=== PATIENT | female | born 1980 | race Two or more races ===

== ENCOUNTER 2019-03-26 08:51 | Day surgery (SDC) | payer BC ==
[2019-03-25 08:58] VITALS: BMI 26.9
[2019-03-26] MEDS ORDERED: MIDAZOLAM HCL 2 MG/2 ML SINGLE DOSE VIAL ONE ×2 (09:38)
[2019-03-26] MEDS ORDERED: DEXAMETHASONE SOD PHOSPHATE 4 MG/1 ML VIAL ONE ×2 (09:38→11:35)
[2019-03-26] MEDS ORDERED: PROPOFOL 20 ML ONE ×2 (09:38→11:36)
[2019-03-26] MEDS ORDERED: SUCCINYLCHOLINE CHLORIDE 200 MG/10 ML SYRINGE ONE (10:46)
[2019-03-26] MEDS ORDERED: EPHEDRINE SULFATE/0.9% NACL/PF 50 MG/10 ML SYRINGE NR ONE (10:46)
[2019-03-26] MEDS ORDERED: CEFOXITIN SODIUM 2 GM IVPB ONE (10:57)
[2019-03-26] MEDS ORDERED: cefOXitin SODIUM 1 GM VIAL (RESTRICTED TO ID) IVPB ONE (11:30)
[2019-03-26] MEDS ORDERED: KETOROLAC TROMETHAMINE 30 MG/1 ML VIAL ONE (11:35)
[2019-03-26] MEDS ORDERED: ACETAMINOPHEN 500 MG TABLET (FP) PO PRN (12:10)
[2019-03-26] MEDS ORDERED: IBUPROFEN 600 MG TABLET (FP) PO PRN (12:10)
--- NOTE | 2019-03-26 12:14 | OP ---
Operative Note - Note: Operative Date: 03/26/19 Pre-Operative Diagnosis: Aborting myoma. Menorrhagia; iron def. anemia. Operation: Hysteroscopy. D and C. Resection of aborting myoma. Post-Operative Diagnosis: Same as Pre-op Surgeon: Charles Louis Anesthesia: General Estimated Blood Loss (mls): 25 Operative Report Dictated: Yes
[2019-03-26] MEDS ORDERED: oxyCODONE HCL 5 MG TABLET PO PRN (12:22)
[2019-03-26] MEDS ORDERED: ONDANSETRON 4 MG/2 ML VIAL IVPUSH PRN (12:22)
[2019-03-26] MEDS ORDERED: LACTATED RINGERS SOLUTION 1,000 ML IV SCH (12:30)
[2019-03-26 13:48] VITALS: TEMP 98
[2019-03-26 14:40] VITALS: BP 121/75; PULSE 85
--- NOTE | 2019-03-26 18:21 | OP ---
DATE OF OPERATION: 03/26/2019 PREOPERATIVE DIAGNOSES: 1. Fibroid uterus with aborting leiomyoma. 2. Menorrhagia, dysfunctional uterine bleeding with resulting iron deficiency anemia. POSTOPERATIVE DIAGNOSES: 1. Fibroid uterus with aborting leiomyoma. 2. Menorrhagia, dysfunctional uterine bleeding with resulting iron deficiency anemia. PROCEDURE: 1. Hysteroscopy. 2. Dilatation and curettage. 3. Resection of aborting myoma. SURGEON: Haley Louis MD ANESTHESIA: General laryngeal mask anesthesia. ANESTHESIOLOGIST: Viviane Stokes MD PROCEDURE AND FINDINGS: Under light general anesthesia, in dorsal lithotomy position, the patient was prepped and draped in the normal fashion and examined. Uterus was found to be enlarged with 4-cm fibroid protruding through dilated cervical os. Adnexa were unremarkable. Patient was moderately bleeding. Hysteroscopy was carried out using saline as a distending medium. It was rather difficult to assess the cavity in view of persistent oozing. Stalk of the myoma was identified lower in the uterine segment. Myoma was grasped with tenaculum and put gently under traction. The stalk was identified and palpated. Under direct palpation, using long Bovie at 40 boswell of blended current, the base of the fibroid was interrupted and coagulated. Fibroid was sent for pathology. With cervix held with the ring forceps, sharp curettage was performed, producing minimal amount of tissue. bleeding was quite brisk. Using bimanual approach, uterus was placed under pressure. Massaged and compressed, bleeding quickly subsided. Patient was then observed for several minutes without any recurrence. Patient was re-examined gently and uterus felt normal to upper-normal size with possibly small fundal myomas that were visualized sonographically as well. After sufficient time of observation, patient was awakened and transferred to PACU in stable condition. There was no complication with the procedure or with anesthesia. HALEY LOUIS MD [id number]
--- NOTE | 2019-03-27 19:18 | PATH ---
Surgical Pathology Report Patient Name: MAI MORELOS [facility]. Rec. #: [id number] /Age/Gender: 1980 (Age: 38) / F Account: [id number] Location: [facility] Taken: 03/26/2019 Received: 03/26/2019 Reported: 03/27/2019 Physicians: Charles Louis MD Specimen(s) Received A: ABORTING MYOMA B: ENDOMETRIAL CURETTINGS Clinical History Leiomyoma of uterus Excessive menstrual cycle Final Diagnosis A. "ABORTING" MYOMA, MYOMECTOMY: 22 G, LEIOMYOMA WITH ASSOCIATED PATCHY SUPERFICIAL MARKED ACUTE AND CHRONIC INFLAMMATION. B. ENDOMETRIAL CURETTINGS, DILATION AND CURETTAGE: FRAGMENTS OF SECRETORY ENDOMETRIUM. Electronically Signed Marilu Dvais M.D. Gross Description A. Received in formalin labeled "aborting myoma," is a 22 g capone, rubbery nodule measuring 4 x 2.5 x 3 cm in greatest dimension, consistent with fibroid. Sectioning reveals capone, rubbery parenchyma with whorled architecture. No areas of hemorrhage or necrosis are identified. [employer] sections are submitted in 2 cassettes. B. Received in formalin labeled "endometrial curettings" are multiple fragments of pink-capone, focally hemorrhagic tissue measuring 2 x 1 x 0.5 cm in aggregate. Entire specimen submitted in one cassette. MLSZ/03/26/2019 sanml/03/26/2019
== END 2019-03-26 14:30 | disposition home or self-care (01) ==
LOC: JASU-SURG 08:51
PROVIDERS: ATTEND Specialist
PROC: 0UDB7ZX Extraction of Endometrium, Via Natural or Artificial Opening, Diagnostic (ICD-10-PCS; 2019-03-26)
PROC: 0UJD8ZZ Inspection of Uterus and Cervix, Via Natural or Artificial Opening Endoscopic (ICD-10-PCS; 2019-03-26)
PROC: 0UB98ZZ Excision of Uterus, Via Natural or Artificial Opening Endoscopic (ICD-10-PCS; principal; 2019-03-26 11:00)
DX: D25.9 Leiomyoma of uterus, unspecified (principal); N92.0 Excessive and frequent menstruation with regular cycle; N93.9 Abnormal uterine and vaginal bleeding, unspecified; D50.9 Iron deficiency anemia, unspecified
CPT/HCPCS: 36415; 84703; 86850; 86900; 86901; 88305-TC; 94760